=== PATIENT | female | born 1940 | race Caucasian/White ===

== ENCOUNTER → 2016-08-07 | Outpatient (REF) | payer MEDICARE ==
[2016-08-07 11:33] LABS: MEAN CORPUSCULAR HEMOGLOBIN 30.2 pg (27.0-33.0); MEAN CORPUSCULAR HGB CONC 34.3 g/dl (32.0-36.5); MEAN CORPUSCULAR VOLUME 88.1 fl (80.0-96.0); RED CELL DISTRIBUTION WIDTH 12.9 % (11.5-14.5); WHITE BLOOD COUNT 6.6 K/mm3 (4.0-10.0)
[2016-08-07 12:51] LABS: ALBUMIN 3.8 GM/DL (3.2-5.2); ALBUMIN/GLOBULIN RATIO 1.12 (1.00-1.93); ALKALINE PHOSPHATASE 79 U/L (45-117); ALT/SGPT 26 U/L (12-78); ANION GAP 9 MEQ/L (8-16); AST/SGOT 18 U/L (15-37); BILIRUBIN,TOTAL 0.5 MG/DL (0.2-1.0); BLOOD UREA NITROGEN 13 MG/DL (7-18); CALCIUM LEVEL 8.8 MG/DL (8.8-10.2); CARBON DIOXIDE LEVEL 28 MEQ/L (21-32); CHLORIDE LEVEL 103 MEQ/L (98-107); CHOLESTEROL LEVEL 171 MG/DL (<200); CREATININE FOR GFR 0.66 MG/DL (0.55-1.02); GLOMERULAR FILTRATION RATE > 60.0 (>39); GLUCOSE, FASTING 94 MG/DL (83-110); POTASSIUM SERUM 4.1 MEQ/L (3.5-5.1); SODIUM LEVEL 140 MEQ/L (136-145); TOTAL PROTEIN 7.2 GM/DL (6.4-8.2); TRIGLYCERIDES LEVEL 150 MG/DL (<150)
== END ==
LOC: M SFHCCLAY 08:42
PROVIDERS: ATTEND Family Medicine
DX: M79.7 Fibromyalgia (principal); I10 Essential (primary) hypertension; M15.0 Primary generalized (osteo)arthritis; Z11.59 Encounter for screening for other viral diseases

== ENCOUNTER → 2016-09-07 | Outpatient (REF) | payer MEDICARE | LOC: M SFHCCLAY 08:21 | PROVIDERS: ATTEND Family Medicine | DX: Z00.00 Encounter for general adult medical examination without abnormal findings (principal) ==

== ENCOUNTER → 2017-12-13 | Outpatient (REF) | payer MEDICARE | LOC: M SFHCCLAY 10:54 | DX: G89.29 Other chronic pain (principal) | CPT/HCPCS: 80307 ==

== ENCOUNTER → 2018-07-22 | Outpatient (REF) | payer MEDICARE ==
[~2018-07-22] MED LIST: ASPI1CHW2 PO; ASPI325T25 PO; ATOR1TAB19 PO; BENA20TA8 PO; CHLO25TA GT; GABA-843 PO; GABA600T4 PO; MELO15TA28 PO; MULTTAB24 PO; NORT50CA PO; OXYC1TAB15 PO; PANT40TA3 PO; VITA1TAB23 PO; VITA50005 PO; [UNRECOGNIZED DRUG - CODE] PO
[2018-07-22 18:32] LABS: BLOOD UREA NITROGEN 18 MG/DL (7-18); CALCIUM LEVEL 9.3 MG/DL (8.8-10.2); CARBON DIOXIDE LEVEL 29 MEQ/L (21-32); CHLORIDE LEVEL 102 MEQ/L (98-107); CREATININE FOR GFR 0.96 MG/DL (0.55-1.30); GLOMERULAR FILTRATION RATE > 60.0 (>39); GLUCOSE, FASTING 97 MG/DL (70-100); POTASSIUM SERUM 4.3 MEQ/L (3.5-5.1); SODIUM LEVEL 137 MEQ/L (136-145)
[2018-07-22 18:36] LABS: HEMATOCRIT 41.8 % (36.0-47.0); HEMOGLOBIN 13.4 g/dl (12.0-15.5); MEAN CORPUSCULAR HEMOGLOBIN 29.3 pg (27.0-33.0); MEAN CORPUSCULAR HGB CONC 32.1 g/dl (32.0-36.5); MEAN CORPUSCULAR VOLUME 91.5 fl (80.0-96.0); PLATELET COUNT, AUTOMATED 273 10^3/uL (150-450); RED BLOOD COUNT 4.57 10^6/uL (4.00-5.40); WHITE BLOOD COUNT 7.3 10^3/uL (4.0-10.0)
== END ==
LOC: M LABDRAWC 16:08
PROVIDERS: ATTEND Podiatrist Foot & Ankle Surgery
DX: Z01.812 Encounter for preprocedural laboratory examination (principal); M20.42 Other hammer toe(s) (acquired), left foot

== ENCOUNTER 2018-08-07 06:04 | Day surgery (SDC) | payer MEDICARE ==
[~2018-08-07] VITALS: Ht 152.4 cm; Wt 72.6 kg
[~2018-08-07 06:04] MED LIST changes: +LR 1,000 ML IV ONE
[2018-08-07] MEDS ORDERED: BUPIVACAINE HCL 0.5% 30 ML VIAL As Ordered ONE (06:56)
[2018-08-07] MEDS ORDERED: LIDOCAINE 1% MDV 20ML VIAL As Ordered ONE (06:56)
[2018-08-07] MEDS ORDERED: fentaNYL 100 MCG/2 ML INJECTION (J3010) As Ordered ONE (07:15)
[2018-08-07] MEDS ORDERED: MIDAZOLAM INJ 2 MG/2 ML VIAL (J2250) As Ordered ONE (07:15)
[2018-08-07] MEDS ORDERED: LIDOCAINE 2% INJ 100 MG/5 ML SDV (FOR ANES.) As Ordered ONE (07:15)
[2018-08-07] MEDS ORDERED: PROPOFOL 200 MG/20 ML VIAL As Ordered ONE (07:15)
[2018-08-07 09:00] VITALS: BP 194/97
--- NOTE | 2018-08-07 12:40 | RO ---
DATE OF PROCEDURE: 08/07/2018 PREPROCEDURE DIAGNOSIS: Left fourth hammertoe. POSTPROCEDURE DIAGNOSIS: Left fourth hammertoe. PROCEDURE: Left fourth toe amputation. SURGEON: Dr. Cholo Agrawal TELEPHONE CLAIMS REPRESENTATIVE: None. ANESTHESIA: Monitored anesthesia care with preoperative injection of 17 mL of 1:1 mixture of 1% lidocaine plain and 1/2% Marcaine plain. ESTIMATED BLOOD LOSS: Minimal. MATERIALS: #3-0 nylon. INJECTABLES: None. COMPLICATIONS: None. CONDITION: Stable. DESCRIPTION OF PROCEDURE: Radha Lewis is a 78-year-old female who presents to [facility] with complaints of painful left fourth hammertoe. She has undergone numerous conservative treatments without resolution of pain due to significant bunion and other hammertoe deformities, Hammertoe correction would not be obtainable without prolonged time off her feet, which as a diaz she cannot afford to take. She elects to have the toe removed for resolution of her pain. The patient site and side were identified and marked in preoperative holding area. Consent was reviewed and obtained. All the risks, complications and alternatives to the procedure were explained to the patient in detail and all questions were answered. The patient was brought to the operating room and placed on the operating room in supine position. Monitored anesthesia care was delivered by the anesthesia department. Preoperative injection of 17 mL of 1:1 mixture of 1% lidocaine plain and 0.25% Marcaine plain were injected into the left foot. The left foot was prepped and draped in normal sterile fashion. A tourniquet was applied to the left ankle and inflated at 225 mmHg. The patient received Ancef preoperatively. An elliptical incision was drawn over the fourth toe and carried through with #15 blade. The toe was disarticulated at the metatarsal phalangeal joint. The toe was sent for pathology. The site was irrigated with normal saline and incision was repaired with #3-0 nylon. Sterile dressings were applied. Tourniquet was deflated. The patient was brought to the postanesthesia care unit (PACU) with vital signs stable and neurovascular status intact. She will be weight bearing as tolerated in a postoperative shoe. She will follow up in the office in two days.
== END 2018-08-07 09:00 | disposition home or self-care (01) ==
LOC: M SDC 06:04
PROVIDERS: ATTEND Podiatrist Foot & Ankle Surgery
DX: M20.42 Other hammer toe(s) (acquired), left foot (principal); Z79.82 Long term (current) use of aspirin; Z79.899 Other long term (current) drug therapy; E78.5 Hyperlipidemia, unspecified; I10 Essential (primary) hypertension; K21.9 Gastro-esophageal reflux disease without esophagitis; M79.7 Fibromyalgia
CPT/HCPCS: 28820; 88300; J0690; J2250; J3010

== ENCOUNTER → 2018-12-23 | Outpatient (REF) | payer MEDICARE ==
[~2018-12-23] MED LIST changes: +ASPI-255 PO; -ASPI325T25 PO; -LR 1,000 ML IV ONE; +REDCAP4 PO; -[UNRECOGNIZED DRUG - CODE] PO
[2018-12-23 18:18] LABS: BASO % 0.4 % (0.0-1.0); EOS # 0.2 10^3/uL (0.0-0.50); EOS % 2.9 % (0.0-3.0); HEMATOCRIT 40.5 % (36.0-47.0); HEMOGLOBIN 12.9 g/dl (12.0-15.5); LYMPH # 1.8 10^3/uL (1.5-4.5); MEAN CORPUSCULAR HEMOGLOBIN 30.3 pg (27.0-33.0); MEAN CORPUSCULAR HGB CONC 31.9 g/dl (32.0-36.5); MEAN CORPUSCULAR VOLUME 95.1 fl (80.0-96.0); MONO # 0.8 10^3/uL (0.0-0.8); MONO % 9.7 % (0.0-5.0); NEUTROPHILS # 5.2 10^3/uL (1.8-7.7); NEUTROPHILS % 64.8 % (36.0-66.0); PLATELET COUNT, AUTOMATED 298 10^3/uL (150-450); RED BLOOD COUNT 4.26 10^6/uL (4.00-5.40)
[2018-12-23 18:21] LABS: ALBUMIN 3.4 GM/DL (3.2-5.2); ALT/SGPT 22 U/L (12-78); BILIRUBIN,TOTAL 0.3 MG/DL (0.2-1.0); BLOOD UREA NITROGEN 14 MG/DL (7-18); CALCIUM LEVEL 8.7 MG/DL (8.8-10.2); CARBON DIOXIDE LEVEL 29 MEQ/L (21-32); CHLORIDE LEVEL 102 MEQ/L (98-107); CPK CREATINE PHOSPHOKINASE 85 U/L (26-192); CREATININE FOR GFR 0.83 MG/DL (0.55-1.30); GLOMERULAR FILTRATION RATE > 60.0 (>39); GLUCOSE, FASTING 96 MG/DL (70-100); POTASSIUM SERUM 4.3 MEQ/L (3.5-5.1); SODIUM LEVEL 138 MEQ/L (136-145); TOTAL PROTEIN 7.6 GM/DL (6.4-8.2)
[2018-12-23 19:08] LABS: ERYTHROCYTE SEDIMENTATION RATE 67 mm/hr (0-30)
== END ==
LOC: M SFHCCLAY 12:17
PROVIDERS: ATTEND Family Medicine
DX: M54.5 Low back pain (principal); R35.0 Frequency of micturition
CPT/HCPCS: 80053; 81002; 82550; 85025; 85652; 87086; G0463

== ENCOUNTER → 2018-12-27 | Outpatient (REF) | payer MEDICARE ==
[2018-12-27 13:01] LABS: TOTAL PROTEIN 7.7 GM/DL (6.4-8.2)
[2018-12-31 12:25] LABS: ALBUMIN % 53.9 % (55.8-66.1); ALPHA-1-GLOBULIN % 5.4 % (2.9-4.9); ALPHA-2-GLOBULINS % 14.5 % (7.1-11.8); BETA-1-GLOBULINS % 6.2 % (4.7-7.2)
[2018-12-31 12:26] LABS: ALBUMIN 4.15 GM/DL (3.29-5.55); ALPHA-1-GLOBULINS 0.42 GM/DL (0.17-0.41); ALPHA-2-GLOBULINS 1.12 GM/DL (0.42-0.99); BETA-1-GLOBULINS 0.48 GM/DL (0.28-0.60); BETA-2-GLOBULINS % 5.2 % (3.2-6.5); GAMMA GLOBULIN % 14.8 % (11.1-18.8); GAMMA GLOBULINS 1.14 GM/DL (0.65-1.58)
== END ==
LOC: M SFHCCLAY 09:07
PROVIDERS: ATTEND Family Medicine
DX: G89.29 Other chronic pain (principal)

== ENCOUNTER → 2019-05-21 | Outpatient (REF) | payer MEDICARE ==
[2019-05-21 12:01] LABS: HEMATOCRIT 41.8 % (36.0-47.0); HEMOGLOBIN 13.5 g/dl (12.0-15.5); MEAN CORPUSCULAR HEMOGLOBIN 30.3 pg (27.0-33.0); MEAN CORPUSCULAR HGB CONC 32.3 g/dl (32.0-36.5); MEAN CORPUSCULAR VOLUME 93.9 fl (80.0-96.0); PLATELET COUNT, AUTOMATED 268 10^3/uL (150-450); RED BLOOD COUNT 4.45 10^6/uL (4.00-5.40); WHITE BLOOD COUNT 7.2 10^3/uL (4.0-10.0)
[2019-05-21 12:22] LABS: BLOOD UREA NITROGEN 25 MG/DL (7-18); CALCIUM LEVEL 9.3 MG/DL (8.8-10.2); CARBON DIOXIDE LEVEL 30 MEQ/L (21-32); CHLORIDE LEVEL 102 MEQ/L (98-107); CREATININE FOR GFR 1.06 MG/DL (0.55-1.30); GLOMERULAR FILTRATION RATE 53.5 (>39); GLUCOSE, FASTING 112 MG/DL (70-100); POTASSIUM SERUM 3.8 MEQ/L (3.5-5.1); RHEUMATOID FACTOR QUANT < 10.0 IU/ML (<15.0); SODIUM LEVEL 139 MEQ/L (136-145); URIC ACID 6.2 MG/DL (2.6-6.0)
[2019-05-21 12:40] LABS: ERYTHROCYTE SEDIMENTATION RATE 40 mm/hr (0-30)
[2019-05-23 00:07] LABS: ANA (HEP2) Negative (.); CYCLIC CITRULLINATED PEPTIDE 8 units (0-19); IgG P18 AB Absent (.); IgG P23 AB Absent (.); IgG P28 AB Absent (.); IgG P30 AB Absent (.); IgG P39 AB Absent (.); IgG P41 AB Present (.); IgG P45 AB Absent (.); IgG P66 AB Absent (.); IgG P93 AB Absent (.); IgM P23 AB Absent (.); IgM P39 AB Absent (.); IgM P41 AB Absent (.); LYME IgG WB INTERPRETATION Negative (.); LYME IgM WB INTERPRETATION Negative (.)
== END ==
LOC: M SFHCCLAY 08:35
PROVIDERS: ATTEND Family Medicine
DX: R53.82 Chronic fatigue, unspecified (principal); M13.0 Polyarthritis, unspecified; R73.01 Impaired fasting glucose

== ENCOUNTER → 2019-08-29 | Outpatient (REF) | payer MEDICARE ==
[2019-08-29 16:58] LABS: FREE T4 1.07 NG/DL (0.76-1.46); THYROID STIMULATING HORMONE 4.9 uIU/ML (0.358-3.740)
[2019-09-07 14:06] LABS: OXYCODONE URINE Positive (.); OXYCODONE, URINE CONFIRM 2640 ng/mL (Cutoff=100); OXYCODONE/OXYMORPH, URINE Positive (Cutoff=100); OXYMORPHONE, URINE Positive (.); OXYMORPHONE, URINE CONFIRM 674 ng/mL (Cutoff=100)
== END ==
LOC: M SFHCCLAY 10:30
PROVIDERS: ATTEND Family Medicine
DX: M25.511 Pain in right shoulder (principal); M25.512 Pain in left shoulder; G89.29 Other chronic pain; R41.3 Other amnesia
CPT/HCPCS: 82607; 84439; 84443; G0463

== ENCOUNTER → 2020-01-07 | Outpatient (REF) | payer MEDICARE ==
[2020-01-07 16:41] LABS: HEMATOCRIT 42.5 % (36.0-47.0); HEMOGLOBIN 13.4 g/dl (12.0-15.5); MEAN CORPUSCULAR HEMOGLOBIN 30.2 pg (27.0-33.0); MEAN CORPUSCULAR HGB CONC 31.5 g/dl (32.0-36.5); MEAN CORPUSCULAR VOLUME 95.9 fl (80.0-96.0); PLATELET COUNT, AUTOMATED 269 10^3/uL (150-450); RED BLOOD COUNT 4.43 10^6/uL (4.00-5.40); WHITE BLOOD COUNT 7.8 10^3/uL (4.0-10.0)
[2020-01-07 16:48] LABS: ALBUMIN 3.7 GM/DL (3.2-5.2); BILIRUBIN,TOTAL 0.2 MG/DL (0.2-1.0); CALCIUM LEVEL 9.6 MG/DL (8.8-10.2); CREATININE FOR GFR 1.09 MG/DL (0.55-1.30); FREE T4 1.06 NG/DL (0.76-1.46); GLOMERULAR FILTRATION RATE 51.8 (>39); POTASSIUM SERUM 4.2 MEQ/L (3.5-5.1); THYROID STIMULATING HORMONE 3.4 uIU/ML (0.358-3.740); TOTAL PROTEIN 7.6 GM/DL (6.4-8.2)
== END ==
LOC: M SFHCCLAY 10:43
PROVIDERS: ATTEND Family Medicine
DX: R53.82 Chronic fatigue, unspecified (principal); R41.3 Other amnesia

== ENCOUNTER → 2020-03-19 | Outpatient (REF) | payer MEDICARE ==
[~2020-03-19] MED LIST changes: +PANT40TA29 PO; -PANT40TA3 PO; -VITA1TAB23 PO; +VITA250T26 PO
== END ==
LOC: M LAB REF 18:46
PROVIDERS: ATTEND Dermatology
DX: L72.0 Epidermal cyst (principal)

== ENCOUNTER → 2021-04-26 | Outpatient (REF) | payer MEDICARE ==
[~2021-04-26] MED LIST changes: +GABA-282 PO; -GABA-843 PO; -OXYC1TAB15 PO; +OXYC7.5T3 PO
[2021-04-26 16:24] LABS: BASO % 0.4 % (0.0-1.0); EOS # 0.2 10^3/uL (0.0-0.5); EOS % 2.9 % (0.0-3.0); HEMATOCRIT 42.2 % (36.0-47.0); HEMOGLOBIN 13.8 g/dl (12.0-15.5); LYMPH # 1.8 10^3/uL (1.5-5.0); MEAN CORPUSCULAR HGB CONC 32.7 g/dl (32.0-36.5); MEAN CORPUSCULAR VOLUME 94.8 fl (80.0-96.0); MONO # 0.5 10^3/uL (0.0-0.8); MONO % 7.6 % (2.0-8.0); NEUTROPHILS # 4.2 10^3/uL (1.5-8.5); PLATELET COUNT, AUTOMATED 276 10^3/uL (150-450); RED BLOOD COUNT 4.45 10^6/uL (4.00-5.40); WHITE BLOOD COUNT 6.8 10^3/uL (4.0-10.0)
[2021-04-26 16:50] LABS: ERYTHROCYTE SEDIMENTATION RATE 21 mm/hr (0-30)
== END ==
LOC: M SFHCCLAY 12:28
PROVIDERS: ATTEND Family Medicine
DX: L08.9 Local infection of the skin and subcutaneous tissue, unspecified (principal)

== ENCOUNTER → 2021-04-26 | Outpatient (CLI) | payer MEDICARE ==
--- NOTE | 2021-04-26 13:25 | REP ---
INDICATION: FOOT PAIN LEFT COMPARISON: None. TECHNIQUE: AP, lateral, bilateral oblique views left foot. FINDINGS: There is absence of the 4th toe beyond the metatarsal. There is advanced chronic valgus deformity involving 1st, 2nd, and 3rd toes. There is advanced subchondral sclerosis, joint space narrowing and early spurring involving the 1st metatarsophalangeal and multiple interphalangeal joints. There is periarticular sclerosis and irregularity/joint space narrowing at the tarsometatarsal joints. No acute fracture or dislocation. No subcutaneous emphysema or foreign body. IMPRESSION: Advanced arthritic changes as noted above. Findings suggest prior amputation involving the 4th toe. <Electronically signed by Daljit Saldaña > 04/26/21 [id number]
== END ==
LOC: M CLY 12:59
PROVIDERS: ATTEND Family Medicine
DX: M19.072 Primary osteoarthritis, left ankle and foot (principal); M79.672 Pain in left foot; Z89.422 Acquired absence of other left toe(s); L08.9 Local infection of the skin and subcutaneous tissue, unspecified; Z23 Encounter for immunization
CPT/HCPCS: 73630; 85025; 85652; 86140; 90682; G0008; G0463

== ENCOUNTER → 2021-05-31 | Outpatient (CLI) | payer MEDICARE ==
--- NOTE | 2021-05-31 16:39 | REP ---
INDICATION: CHRONIC ULCER LT FOOT COMPARISON: None. TECHNIQUE: Real-time sonographic evaluation of the left lower extremity arteries with Doppler FINDINGS: All numeric values represent peak systolic velocities in cm/SEC The ankle brachial index is 1.3 TRENCH D[employer]PER: 71.3 biphasic Profunda: 63.3 biphasic SFA proximal: 73.3 biphasic SFA mid: 79.1 biphasic SFA distal: 76.3 biphasic Popliteal: 58.2 biphasic Tibioperoneal trunk: 45.5 biphasic [employer] proximal: 60.8 biphasic [employer] distal: 34.4 monophasic Peroneal proximal: 60.3 biphasic Peroneal distal: 40.8 monophasic CHELSEA proximal: 49.6 triphasic CHELSEA distal: 41.0 monophasic Moderate plaque formation was seen with no evidence of a direct stenosis. IMPRESSION: As above <Electronically signed by Magdaleno Bella > 05/31/21 [id number]
== END ==
LOC: M RAD 14:59
PROVIDERS: ATTEND Surgery
DX: I70.245 Atherosclerosis of native arteries of left leg with ulceration of other part of foot (principal); L97.522 Non-pressure chronic ulcer of other part of left foot with fat layer exposed

== ENCOUNTER → 2022-02-22 | Outpatient (REF) | payer MEDICARE ==
[~2022-02-22] MED LIST changes: +BENA-8 PO; -BENA20TA8 PO
[2022-02-22 17:57] LABS: BASO % 0.6 % (0.0-1.0); EOS # 0.2 10^3/uL (0.0-0.5); EOS % 2.8 % (0.0-3.0); HEMATOCRIT 42.3 % (36.0-47.0); HEMOGLOBIN 13.9 g/dl (12.0-15.5); LYMPH # 1.7 10^3/uL (1.5-5.0); LYMPH % 25.9 % (24.0-44.0); MEAN CORPUSCULAR HEMOGLOBIN 30.8 pg (27.0-33.0); MEAN CORPUSCULAR HGB CONC 32.9 g/dl (32.0-36.5); MEAN CORPUSCULAR VOLUME 93.8 fl (80.0-96.0); MONO # 0.5 10^3/uL (0.0-0.8); NEUTROPHILS # 4.2 10^3/uL (1.5-8.5); NEUTROPHILS % 62.4 % (36.0-66.0); PLATELET COUNT, AUTOMATED 242 10^3/uL (150-450); RED BLOOD COUNT 4.51 10^6/uL (4.00-5.40); WHITE BLOOD COUNT 6.7 10^3/uL (4.0-10.0)
[2022-02-22 18:10] LABS: APPEARANCE, URINE MANUAL CLEAR (CLEAR); COLOR, URINE MANUAL YELLOW (YELLOW)
[2022-02-22 18:11] LABS: GLUCOSE, URINE (UA) MANUAL NEGATIVE (NEGATIVE); KETONE, URINE MANUAL NEGATIVE (NEGATIVE); PH,URINE MAN 5.5 UNITS (5.0 - 7.0); PROTEIN, URINE MANUAL NEGATIVE (NEGATIVE)
[2022-02-22 18:12] LABS: BILIRUBIN, URINE MANUAL NEGATIVE (NEGATIVE); BLOOD URINE MANUAL NEGATIVE (NEGATIVE); LEUKOCYTE ESTERASE, URINE MAN TRACE (NEGATIVE); NITRITE, URINE MANUAL NEGATIVE (NEGATIVE); UROBILINOGEN, URINE MANUAL NORMAL (NORMAL)
[2022-02-22 18:51] LABS: ALBUMIN 3.7 GM/DL (3.2-5.2); ALT/SGPT 23 U/L (12-78); BILIRUBIN,TOTAL 0.3 MG/DL (0.2-1.0); BLOOD UREA NITROGEN 23 MG/DL (7-18); CALCIUM LEVEL 9.6 MG/DL (8.8-10.2); CARBON DIOXIDE LEVEL 28 MEQ/L (21-32); CHLORIDE LEVEL 102 MEQ/L (98-107); CHOLESTEROL LEVEL 238 MG/DL (<200); CHOLESTEROL RISK RATIO 5.534 (<5); GLOMERULAR FILTRATION RATE > 60.0 (>39); GLUCOSE, FASTING 108 MG/DL (70-100); HDL CHOLESTEROL 43 MG/DL (>40); LDL CHOLESTEROL 136 MG/DL (<100); NON-HDL-C 195 MG/DL; POTASSIUM SERUM 4.1 MEQ/L (3.5-5.1); SODIUM LEVEL 136 MEQ/L (136-145); TOTAL PROTEIN 7.2 GM/DL (6.4-8.2); TRIGLYCERIDES LEVEL 293 MG/DL (<150)
== END ==
LOC: M SFHCCLAY 10:21
PROVIDERS: ATTEND Family Medicine
DX: G89.29 Other chronic pain (principal); E03.9 Hypothyroidism, unspecified; I10 Essential (primary) hypertension; E78.00 Pure hypercholesterolemia, unspecified

== ENCOUNTER → 2023-06-15 | Outpatient (REF) | payer MEDICARE ==
[2023-06-15 18:58] LABS: BASO % 0.4 % (0.0-1.0); EOS # 0.2 10^3/uL (0.0-0.5); EOS % 3.4 % (0.0-3.0); HEMATOCRIT 41.8 % (36.0-47.0); HEMOGLOBIN 13.2 g/dl (12.0-15.5); LYMPH # 1.8 10^3/uL (1.5-5.0); LYMPH % 26.5 % (24.0-44.0); MEAN CORPUSCULAR HEMOGLOBIN 29.9 pg (27.0-33.0); MEAN CORPUSCULAR HGB CONC 31.6 g/dl (32.0-36.5); MEAN CORPUSCULAR VOLUME 94.8 fl (80.0-96.0); MONO # 0.6 10^3/uL (0.0-0.8); MONO % 8.1 % (2.0-8.0); NEUTROPHILS # 4.1 10^3/uL (1.5-8.5); NEUTROPHILS % 61.2 % (36.0-66.0); PLATELET COUNT, AUTOMATED 210 10^3/uL (150-450); RED BLOOD COUNT 4.41 10^6/uL (4.00-5.40); WHITE BLOOD COUNT 6.8 10^3/uL (4.0-10.0)
[2023-06-15 19:24] LABS: HEMOGLOBIN A1c 5.4 % (4.0-6.0)
[2023-06-15 19:32] LABS: ALBUMIN 3.6 G/DL (3.2-5.2); ALKALINE PHOSPHATASE 67 U/L (46-116); ALT/SGPT 20 U/L (7.0-40); AST/SGOT 20 U/L (<34); BILIRUBIN,TOTAL 0.3 MG/DL (0.3-1.2); BLOOD UREA NITROGEN 23 MG/DL (9-23); CALCIUM LEVEL 9.4 MG/DL (8.3-10.6); CARBON DIOXIDE LEVEL 29 MMOL/L (20-31); CHLORIDE LEVEL 104 MMOL/L (98-107); CHOLESTEROL LEVEL 244 MG/DL (<200); CHOLESTEROL RISK RATIO 4.97 (<5); CREATININE FOR GFR 0.72 MG/DL (0.55-1.30); GLOMERULAR FILTRATION RATE > 60.0 (>32); GLUCOSE, FASTING 93 MG/DL (74-106); LDL CHOLESTEROL 154.4 MG/DL (<100); POTASSIUM SERUM 4.3 MMOL/L (3.5-5.1); SODIUM LEVEL 139 MMOL/L (136-145); TOTAL PROTEIN 6.8 G/DL (5.7-8.2); TRIGLYCERIDES LEVEL 203 MG/DL (<150)
== END ==
LOC: M SFHCCLAY 11:30
PROVIDERS: ATTEND Family Medicine
DX: M15.0 Primary generalized (osteo)arthritis (principal); R73.01 Impaired fasting glucose; G89.29 Other chronic pain; I10 Essential (primary) hypertension; E03.9 Hypothyroidism, unspecified; E78.00 Pure hypercholesterolemia, unspecified

== ENCOUNTER → 2024-09-04 | Outpatient (REF) | payer MEDICARE ==
[~2024-09-04] MED LIST changes: +GABA-1172 PO; +GABA-1490 PO; -GABA-282 PO; -GABA600T4 PO
== END ==
LOC: M SFHCCLAY 15:24
PROVIDERS: ATTEND Nurse Practitioner Family
DX: M79.7 Fibromyalgia (principal); I10 Essential (primary) hypertension; Z98.890 Other specified postprocedural states; G89.29 Other chronic pain; Z53.9 Procedure and treatment not carried out, unspecified reason

== ENCOUNTER → 2024-09-05 | Outpatient (CLI) | payer MEDICARE | LOC: M CLY 09:22 | PROVIDERS: ATTEND Nurse Practitioner Family | DX: M25.551 Pain in right hip (principal); Z98.890 Other specified postprocedural states ==

== ENCOUNTER → 2024-09-05 | Outpatient (CLI) | payer MEDICARE | LOC: M CLY 10:01 | PROVIDERS: ATTEND Nurse Practitioner Family | DX: M25.511 Pain in right shoulder (principal) ==